=== PATIENT | female | born 2000 | race Hispanic/Latino ===

== ENCOUNTER 2019-05-16 21:06 | Emergency (ER) | payer OTHER ==
[~2019-05-16 21:06] MED LIST: LEVO500T89 PO
[2019-05-16 21:24] LABS: APPEARANCE,URINE Clear (CLEAR); BILIRUBIN,URINE Negative (NEGATIVE); COLOR,URINE Yellow (YELLOW); GLUCOSE, URINE (UA) Negative (NEGATIVE); KETONES,URINE Negative (NEGATIVE); LEUKOCYTE ESTERASE ,URINE Trace (NEGATIVE); NITRATE,URINE Negative (NEGATIVE); OCCULT BLOOD,URINE Negative (NEGATIVE); PH,URINE 6.5 (5.0-8.0); PROTEIN,URINE Negative (NEGATIVE)
[2019-05-16 21:26] LABS: HCG,QUAL RESULT POSITIVE (NEGATIVE)
[2019-05-16] MEDS ORDERED: SODIUM CHLORIDE 0.9% 1000ML 1,000 ML IV ONE (21:30)
[2019-05-16 21:31] LABS: BACTERIA,URINE Rare /HPF (None Seen); RBC,URINE 0-1 /HPF (0-1); SQUAMOUS EPITHELIAL CELL,UR Rare /HPF (0-2); WBC,URINE 0-1 /HPF (0-1)
[2019-05-16 21:38] LABS: BASOPHILS % (AUTO) 0.1 % (0.0-5.0); EOSINOPHILS % (AUTO) 0.8 % (0.0-8.0); HEMATOCRIT 34.7 % (36-48); LYMPHOCYTES % (AUTO) 33.2 % (21.0-51.0); MEAN CORPUSCULAR HEMOGLOBIN 24.6 pg (27.0-33.0); MEAN CORPUSCULAR HGB CONC 33.2 g/dL (32.0-36.0); MEAN CORPUSCULAR VOLUME 74.1 fL (80-100); MONOCYTES % (AUTO) 6.6 % (3.0-13.0); NEUTROPHILS % (AUTO) 59.3 % (40.0-77.0); PLATELET COUNT (AUTO) 268 K/uL (130-400); RED BLOOD CELL COUNT(AUTO) 4.68 MIL/uL (4.00-5.50); RED CELL DISTRIBUTION WIDTH 14.5 % (11.0-15.5); WHITE BLOOD COUNT (AUTO) 7.5 K/uL (4.8-10.8)
[2019-05-16 21:48] LABS: CREATININE 0.6 mg/dL (0.5-1.5); POTASSIUM 3.7 mmol/L (3.5-5.1)
[2019-05-16 21:52] LABS: ALBUMIN 4.2 g/dL (3.5-5.0); BILIRUBIN,TOTAL 0.3 mg/dL (0.2-1.0); TOTAL PROTEIN, SERUM 8.3 g/dL (6.0-8.3)
[2019-05-16] MEDS ORDERED: ACETAMINOPHEN 325 MG TAB ONE (22:10)
[2019-05-16] MEDS ORDERED: CEFTRIAXONE SODIUM 1 GM ONE (23:14)
== END 2019-05-17 00:04 | disposition home or self-care (01) ==
LOC: EDH 21:06
DX: O23.41 Unspecified infection of urinary tract in pregnancy, first trimester (principal); Z3A.01 Less than 8 weeks gestation of pregnancy
CPT/HCPCS: 36415; 76801; 80053; 81001; 81025; 82150; 83690; 85025; 86900; 86901; 87088; 96374; 99285; J0696; J7030

== ENCOUNTER 2019-11-15 16:48 | Observation (INO) | payer OTHER ==
[~2019-11-15] VITALS: Ht 152.4 cm; Wt 56.2 kg
[2019-11-15] MEDS: LACTATED RINGERS 1000ML IV SCH ×3 (17:22→19:00)
[2019-11-15 17:32] LABS: APPEARANCE,URINE Clear (CLEAR); BILIRUBIN,URINE Small (NEGATIVE); COLOR,URINE Orange (YELLOW); GLUCOSE, URINE (UA) Negative (NEGATIVE); KETONES,URINE >=80 mg/dL (NEGATIVE); LEUKOCYTE ESTERASE ,URINE Small (NEGATIVE); NITRATE,URINE Positive (NEGATIVE); OCCULT BLOOD,URINE Moderate (NEGATIVE); PH,URINE 6.5 (5.0-8.0); PROTEIN,URINE POS 1+ mg/dL (NEGATIVE)
[2019-11-15 17:41] LABS: BACTERIA,URINE Few /HPF (None Seen); MUCUS,URINE Few LPF (None Seen); SQUAMOUS EPITHELIAL CELL,UR Few /HPF (0-2)
[2019-11-15] MEDS ORDERED: CEFTRIAXONE SODIUM 1 GM ONE (18:15)
[2019-11-15 18:18] LABS: BASOPHILS % (AUTO) 0.1 % (0.0-5.0); EOSINOPHILS % (AUTO) 0.1 % (0.0-8.0); HEMATOCRIT 30.9 % (36-48); LYMPHOCYTES % (AUTO) 9.9 % (21.0-51.0); MEAN CORPUSCULAR HEMOGLOBIN 26.6 pg (27.0-33.0); MEAN CORPUSCULAR HGB CONC 31.4 g/dL (32.0-36.0); MEAN CORPUSCULAR VOLUME 84.9 fL (80-100); NEUTROPHILS % (AUTO) 83.2 % (40.0-77.0); PLATELET COUNT (AUTO) 182 K/uL (130-400); RED BLOOD CELL COUNT(AUTO) 3.64 MIL/uL (4.00-5.50); WHITE BLOOD COUNT (AUTO) 8.3 K/uL (4.8-10.8)
[2019-11-15 18:21] LABS: CREATININE 0.6 mg/dL (0.5-1.5); POTASSIUM 3.8 mmol/L (3.5-5.1)
[2019-11-15] MEDS ORDERED: PROMETHAZINE HCL 25 MG/ML 1ML AMPULE IM SCH (19:15)
[2019-11-15] MEDS ORDERED: ACETAMINOPHEN-CODEINE 300/30MG TAB PO ONE (22:06)
[2019-11-16] MEDS ORDERED: CEFTRIAXONE SODIUM 1 GM IV SCH (09:00)
== END 2019-11-15 21:45 | disposition home or self-care (01) ==
LOC: LDH 16:48
PROVIDERS: ADMIT Obstetrics & Gynecology; ATTEND Obstetrics & Gynecology
DX: O21.2 Late vomiting of pregnancy (principal); R19.7 Diarrhea, unspecified; R10.30 Lower abdominal pain, unspecified; M54.9 Dorsalgia, unspecified; Z3A.31 31 weeks gestation of pregnancy
CPT/HCPCS: 36415; 80048; 81001; 85025; 87088; 96361; 96372; 96374; A4606; G0378 ×5; J0696; J2550; J7120 ×3; 96360

== ENCOUNTER 2019-12-15 22:46 | Observation (INO) | payer OTHER ==
[~2019-12-15] VITALS: Ht 152.4 cm; Wt 57.6 kg
[2019-12-15] MEDS ORDERED: LACTATED RINGERS 1000ML 1,000 ML IV SCH (23:00)
[2019-12-15] MEDS ORDERED: FERR-82 PO (23:01)
[2019-12-15 23:17] LABS: APPEARANCE,URINE Clear (CLEAR); BILIRUBIN,URINE Negative (NEGATIVE); COLOR,URINE Yellow (YELLOW); GLUCOSE, URINE (UA) Negative (NEGATIVE); KETONES,URINE Negative (NEGATIVE); LEUKOCYTE ESTERASE ,URINE Trace (NEGATIVE); NITRATE,URINE Negative (NEGATIVE); OCCULT BLOOD,URINE Negative (NEGATIVE); PROTEIN,URINE Negative (NEGATIVE)
[2019-12-15 23:28] LABS: RBC,URINE 0-1 /HPF (0-1); WBC,URINE 0-1 /HPF (0-1)
[2019-12-15 23:29] LABS: BACTERIA,URINE Rare /HPF (None Seen); SQUAMOUS EPITHELIAL CELL,UR 0-2 /HPF (0-2)
[2019-12-16] MEDS ORDERED: PROMETHAZINE HCL 25 MG/ML 1ML AMPULE IM SCH (00:15)
== END 2019-12-16 01:43 | disposition home or self-care (01) ==
LOC: EDH 22:46 → LDH 23:04
PROVIDERS: ADMIT Obstetrics & Gynecology; ATTEND Obstetrics & Gynecology
DX: O26.893 Other specified pregnancy related conditions, third trimester (principal); R10.30 Lower abdominal pain, unspecified; R19.7 Diarrhea, unspecified; O21.2 Late vomiting of pregnancy; O99.013 Anemia complicating pregnancy, third trimester; D64.9 Anemia, unspecified; Z3A.36 36 weeks gestation of pregnancy
CPT/HCPCS: 81001; 99284; G0378 ×3; 96360

== ENCOUNTER 2019-12-25 08:14 | Inpatient (IN) | payer OTHER ==
[~2019-12-25] VITALS: Ht 152.4 cm; Wt 60.8 kg
[~2019-12-25 08:14] MED LIST changes: +FERR-82 PO
[2019-12-25] MEDS ORDERED: LACTATED RINGERS 1000ML 1,000 ML IV PRN (08:55)
[2019-12-25 08:58] VITALS: BP 100/63
[2019-12-25] MEDS ORDERED: EPHEDRINE SULFATE 50 MG/ML AMPULE IVP PRN (09:00)
[2019-12-25] MEDS ORDERED: NALOXONE HCL 0.4 MG/1 ML ML IV PRN (09:00)
[2019-12-25] MEDS ORDERED: ROPIVACAINE 0.2% 100ML VIAL 100 ML EP SCH (09:00)
[2019-12-25] MEDS ORDERED: LACTATED RINGERS 500 ML 500 ML IV PRN (09:00)
[2019-12-25 09:08] LABS: HEMATOCRIT 32.2 % (36-48); MEAN CORPUSCULAR HGB CONC 33.2 g/dL (32.0-36.0); MEAN CORPUSCULAR VOLUME 84.3 fL (80-100); RED BLOOD CELL COUNT(AUTO) 3.82 MIL/uL (4.00-5.50); WHITE BLOOD COUNT (AUTO) 14.4 K/uL (4.8-10.8)
[2019-12-25 09:21] LABS: APPEARANCE,URINE CLEAR (CLEAR); BILIRUBIN,URINE NEGATIVE (NEGATIVE); COLOR,URINE YELLOW (YELLOW); GLUCOSE, URINE (UA) NEGATIVE (NEGATIVE); KETONES,URINE NEGATIVE (NEGATIVE); LEUKOCYTE ESTERASE ,URINE NEGATIVE (NEGATIVE); NITRATE,URINE NEGATIVE (NEGATIVE); OCCULT BLOOD,URINE TRACE-INTACT (NEGATIVE); PH,URINE 7.5 (5.0-8.0); PROTEIN,URINE NEGATIVE (NEGATIVE)
[2019-12-25 09:24] LABS: BACTERIA,URINE Rare /HPF (None Seen); RBC,URINE 0-1 /HPF (0-1); SQUAMOUS EPITHELIAL CELL,UR Rare /HPF (0-2); WBC,URINE 0-1 /HPF (0-1)
[2019-12-25] MEDS: OXYTOCIN-LR 20 UNITS/1000 ML 1,000 ML IV SCH ×2 (14:45→16:20)
[2019-12-25] MEDS ORDERED: METHYLERGONOVINE MALEATE 0.2 MG/1 ML ML ONE (15:05)
[2019-12-25] MEDS ORDERED: BENZOCAINE/LANOLIN/ALOE VERA 60 ML AEROSOL TP PRN (15:15)
[2019-12-25] MEDS ORDERED: MEASLES/MUMPS/RUBELLA VACCINE, LIVE 0.5 ML/VIAL SQ SCH (15:15)
[2019-12-25] MEDS ORDERED: DIPH,PERTUSS(ACELL),TET VAC/PF 0.5 ML VIAL IM PRN (15:15)
[2019-12-25] MEDS ORDERED: LANOLIN 30GM OINTMENT TP PRN (15:15)
[2019-12-25] MEDS ORDERED: ACETAMINOPHEN-CODEINE 300/30MG TAB PO PRN (15:15)
[2019-12-25] MEDS ORDERED: WITCH HAZEL 1 PAD TP PRN (15:15)
[2019-12-25] MEDS: IBUPROFEN 600 MG TABLET PO PRN (16:21)
[2019-12-25] MEDS ORDERED: ONDANSETRON HCL 4 MG/2 ML VIAL ONE (16:31)
--- NOTE | 2019-12-25 19:00 | NUR ---
report received from haley obando rnc
--- NOTE | 2019-12-25 19:35 | NUR ---
pt. called and c/o abdominal pressure and vaginal soreness. Pt. said that she still feeling the numbness of her lower extremities but moving her toes. Fundus has been firm at the level of the umbilicus. Pt encouraged to void at this time. Pt. verbalized that she had a Dasilva catheter earlier and was discontinued at delivery. Bedpan given.
--- NOTE | 2019-12-25 19:45 | NUR ---
pt. tolerated well during the fundal massage.
--- NOTE | 2019-12-25 19:45 | NUR ---
pt. voided on the bedpan 200 cc of urine. Small lochia rubra noted. Lori care done. No swelling noted at the perineum. Lori pad applied. Pt felt comfortable at this time. And she verbalized that she doesn't have pain at this time.
[2019-12-25 20:00] VITALS: BP 95/59
--- NOTE | 2019-12-25 21:05 | NUR ---
dermaplast spray, lanolin cream, and sitz bath indications and instructions given to pt verbally. pt verbalized understanding. familiar with sitz bath use.
[2019-12-25] MEDS: DOCUSATE SODIUM 100 MG CAP PO SCH (21:37)
[2019-12-26] VITALS: BP 97/56
--- NOTE | 2019-12-26 00:25 | NUR ---
TDAP AND MMR GIVEN. IINDICATIONS EXPLAINED TO PT. PT VERBALIZED UNDERSTANDING.
--- NOTE | 2019-12-26 02:47 | NUR ---
IV SALINE LOCKED. FLUSHED WITH NS
[2019-12-26 04:29] VITALS: BP 90/54
--- NOTE | 2019-12-26 04:32 | NUR ---
sandwich and apple juice given
--- NOTE | 2019-12-26 05:08 | NUR ---
pt up to shower. bed linens changed.
[2019-12-26 07:01] LABS: HEMATOCRIT 30.5 % (36-48); MEAN CORPUSCULAR HEMOGLOBIN 27.4 pg (27.0-33.0); MEAN CORPUSCULAR HGB CONC 32.5 g/dL (32.0-36.0); MEAN CORPUSCULAR VOLUME 84.5 fL (80-100); RED BLOOD CELL COUNT(AUTO) 3.61 MIL/uL (4.00-5.50); RED CELL DISTRIBUTION WIDTH 16.7 % (11.0-15.5); WHITE BLOOD COUNT (AUTO) 17.1 K/uL (4.8-10.8)
--- NOTE | 2019-12-26 07:11 | NUR ---
report given to haley bullockc
[2019-12-26 08:27] VITALS: BP 96/55
[2019-12-26] MEDS: DOCUSATE SODIUM 100 MG CAP PO SCH (10:13)
[2019-12-26] MEDS: IBUPROFEN 600 MG TABLET PO PRN (10:13)
--- NOTE | 2019-12-26 11:50 | NUR ---
ROUNDS PT SLEEPING. INSTRUCTED SIGNIFICANT OTHER TO NOTIFY STAFF FOR ANY ASSISTANCE.
--- NOTE | 2019-12-26 15:10 | NUR ---
DISCHARGE DISCHARGED HOME VIA WHEELCHAIR, BABY IN ARMS. DEPARTED PER PRIVATE VEHICLE WITH SPOUSE.
[2019-12-28 06:11] LABS: HEPATITIS Bs ANTIGEN SCREEN P Negative (Negative)
== END 2019-12-26 15:10 | disposition home or self-care (01) | DRG 807 ==
LOC: EDH 08:14 → LDH 08:26 → OBSVTOIN 08:26 → WSH 17:48
PROVIDERS: ADMIT Obstetrics & Gynecology; ATTEND Obstetrics & Gynecology
PROC: 10E0XZZ Delivery of Products of Conception, External Approach (ICD-10-PCS; principal; 2019-12-25)
PROC: 0KQM0ZZ Repair Perineum Muscle, Open Approach (ICD-10-PCS; 2019-12-25)
PROC: 3E0234Z Introduction of Serum, Toxoid and Vaccine into Muscle, Percutaneous Approach (ICD-10-PCS; 2019-12-25)
PROC: 10907ZC Drainage of Amniotic Fluid, Therapeutic from Products of Conception, Via Natural or Artificial Opening (ICD-10-PCS; 2019-12-25)
PROC: 3E0R3BZ Introduction of Anesthetic Agent into Spinal Canal, Percutaneous Approach (ICD-10-PCS; 2019-12-25)
PROC: 00HU33Z Insertion of Infusion Device into Spinal Canal, Percutaneous Approach (ICD-10-PCS; 2019-12-25)
DX: O69.81X0 Labor and delivery complicated by cord around neck, without compression, not applicable or unspecified (principal); Z37.0 Single live birth; O99.02 Anemia complicating childbirth; D64.9 Anemia, unspecified; O70.1 Second degree perineal laceration during delivery; Z23 Encounter for immunization; Z3A.37 37 weeks gestation of pregnancy
CPT/HCPCS: 36415; 81001; 85027; 86592; 86850; 86900; 86901; 87340; 90707; 90715; A4314; A4606; G0378; J2210; J2405; J2590; J2795; J7120

== ENCOUNTER 2020-04-17 19:34 | Emergency (ER) | payer OTHER ==
[2020-04-17] MEDS ORDERED: ONDANSETRON HCL 4 MG/2 ML VIAL ONE (20:39)
[2020-04-17 21:21] LABS: APPEARANCE,URINE Clear (CLEAR); BASOPHILS % (AUTO) 0.1 % (0.0-5.0); BILIRUBIN,URINE Negative (NEGATIVE); COLOR,URINE Dark Yellow (YELLOW); EOSINOPHILS % (AUTO) 1.1 % (0.0-8.0); GLUCOSE, URINE (UA) Negative (NEGATIVE); HEMATOCRIT 41.7 % (36-48); KETONES,URINE 40 mg/dL (NEGATIVE); LEUKOCYTE ESTERASE ,URINE Trace (NEGATIVE); LYMPHOCYTES % (AUTO) 20.8 % (21.0-51.0); MEAN CORPUSCULAR HGB CONC 33.3 g/dL (32.0-36.0); MEAN CORPUSCULAR VOLUME 86.9 fL (79-99); MONOCYTES % (AUTO) 4.3 % (3.0-13.0); NEUTROPHILS % (AUTO) 73.6 % (40.0-77.0); NITRATE,URINE Negative (NEGATIVE); OCCULT BLOOD,URINE Nonhemolyzed Trace (NEGATIVE); PLATELET COUNT (AUTO) 293 K/uL (130-400); PROTEIN,URINE Negative (NEGATIVE); RED CELL DISTRIBUTION WIDTH 13.1 % (11.0-15.5); WHITE BLOOD COUNT (AUTO) 8.2 K/uL (4.8-10.8)
[2020-04-17 21:27] LABS: BACTERIA,URINE Few /HPF (None Seen); MUCUS,URINE Moderate LPF (None Seen); RBC,URINE 0-1 /HPF (0-1); SQUAMOUS EPITHELIAL CELL,UR Few /HPF (0-2)
[2020-04-17 21:28] LABS: HYALINE CASTS, URINE 0-1 /LPF (0-1 /LPF)
[2020-04-17 21:59] LABS: ALBUMIN 4.3 g/dL (3.5-5.0); BILIRUBIN,TOTAL 0.5 mg/dL (0.2-1.0); CREATININE 0.6 mg/dL (0.5-1.5); POTASSIUM 3.8 mmol/L (3.5-5.1); TOTAL PROTEIN, SERUM 8.8 g/dL (6.0-8.3)
[2020-04-17] MEDS ORDERED: ACETAMINOPHEN EXTRA STRENGTH 500 MG TABLET ONE (22:19)
== END 2020-04-17 22:36 | disposition home or self-care (01) ==
LOC: EDH 19:34
DX: O21.0 Mild hyperemesis gravidarum (principal); Z3A.01 Less than 8 weeks gestation of pregnancy
CPT/HCPCS: 36415; 76801; 80053; 81001; 84702; 85025; 86900; 86901; 96361; 96374; 99284; J2405

== ENCOUNTER 2020-05-31 23:33 | Emergency (ER) | payer OTHER ==
[2020-05-31 23:58] LABS: APPEARANCE,URINE Clear (CLEAR); BILIRUBIN,URINE Negative (NEGATIVE); COLOR,URINE Yellow (YELLOW); GLUCOSE, URINE (UA) Negative (NEGATIVE); KETONES,URINE Negative (NEGATIVE); LEUKOCYTE ESTERASE ,URINE Negative (NEGATIVE); NITRATE,URINE Negative (NEGATIVE); OCCULT BLOOD,URINE Nonhemolyzed Trace (NEGATIVE); PROTEIN,URINE Negative (NEGATIVE)
[2020-05-31 23:59] LABS: HCG,QUAL RESULT POSITIVE (NEGATIVE)
[2020-06-01 00:08] LABS: BACTERIA,URINE Few /HPF (None Seen); MUCUS,URINE Few LPF (None Seen); RBC,URINE 0-1 /HPF (0-1); SQUAMOUS EPITHELIAL CELL,UR 0-2 /HPF (0-2); WBC,URINE 0-1 /HPF (0-1)
[2020-06-01] MEDS ORDERED: SODIUM CHLORIDE 0.9% 1000ML 2,000 ML IV ONE (00:12)
[2020-06-01] MEDS ORDERED: METOCLOPRAMIDE 10 MG/2 ML VIAL ONE (00:19)
[2020-06-01 00:32] LABS: INR 0.98 (0.85-1.15); PARTIAL THROMBOPLASTIN TIME 27.6 SEC (26.3-35.5); PROTHROMBIN TIME 10.6 SEC (9.6-11.6)
[2020-06-01 00:47] LABS: CREATININE 0.5 mg/dL (0.5-1.5); POTASSIUM 3.9 mmol/L (3.5-5.1)
[2020-06-01 00:53] LABS: BASOPHILS % (AUTO) 0.1 % (0.0-5.0); EOSINOPHILS % (AUTO) 2.8 % (0.0-8.0); HEMATOCRIT 39.5 % (36-48); LYMPHOCYTES % (AUTO) 23.5 % (21.0-51.0); MEAN CORPUSCULAR HGB CONC 34.7 g/dL (32.0-36.0); MEAN CORPUSCULAR VOLUME 83.7 fL (79-99); MONOCYTES % (AUTO) 4.3 % (3.0-13.0); NEUTROPHILS % (AUTO) 69.1 % (40.0-77.0); PLATELET COUNT (AUTO) 267 K/uL (130-400); RED BLOOD CELL COUNT(AUTO) 4.72 MIL/uL (4.00-5.50); RED CELL DISTRIBUTION WIDTH 12.3 % (11.0-15.5); WHITE BLOOD COUNT (AUTO) 8.8 K/uL (4.8-10.8)
[2020-06-01 01:22] LABS: ALBUMIN 3.7 g/dL (3.5-5.0); BILIRUBIN,TOTAL 0.4 mg/dL (0.2-1.0); TOTAL PROTEIN, SERUM 8.2 g/dL (6.0-8.3)
[2020-06-01] MEDS ORDERED: CEFTRIAXONE SODIUM 1 GM ONE (01:43)
[2020-06-01] MEDS ORDERED: SODIUM CHLORIDE 0.9% 50 ML IV ONE (01:44)
== END 2020-06-01 02:43 | disposition home or self-care (01) ==
LOC: EDH 23:33
DX: O20.0 Threatened abortion (principal); R82.71 Bacteriuria; Z87.891 Personal history of nicotine dependence; Z3A.12 12 weeks gestation of pregnancy
CPT/HCPCS: 36415; 76770; 76801; 80053; 81001; 81025; 82550; 83605; 83690; 84702; 85025; 85610; 85730; 87040 ×2; 87088; 96361; 96374; 96375; 99285; J0696; J2765; J7030

== ENCOUNTER 2020-10-08 14:30 | Observation (INO) | payer MEDICAID, OTHER ==
[2020-10-08 14:58] LABS: APPEARANCE,URINE Clear (CLEAR); BILIRUBIN,URINE Negative (NEGATIVE); COLOR,URINE Yellow (YELLOW); GLUCOSE, URINE (UA) Negative (NEGATIVE); KETONES,URINE Negative (NEGATIVE); LEUKOCYTE ESTERASE ,URINE Negative (NEGATIVE); NITRATE,URINE Negative (NEGATIVE); OCCULT BLOOD,URINE Trace (NEGATIVE); PROTEIN,URINE Negative (NEGATIVE)
[2020-10-08 15:15] LABS: BACTERIA,URINE Rare /HPF (None Seen); RBC,URINE 0-1 /HPF (0-1); SQUAMOUS EPITHELIAL CELL,UR 0-2 /HPF (0-2); WBC,URINE 0-1 /HPF (0-1)
== END 2020-10-08 16:35 | disposition home or self-care (01) ==
LOC: EDH 14:30 → LDH 14:31
PROVIDERS: ADMIT Obstetrics & Gynecology; ATTEND Obstetrics & Gynecology
DX: O26.853 Spotting complicating pregnancy, third trimester (principal); O99.013 Anemia complicating pregnancy, third trimester; D64.9 Anemia, unspecified; Z87.448 Personal history of other diseases of urinary system; Z3A.32 32 weeks gestation of pregnancy
CPT/HCPCS: 59025; 81001; 99284; G0378 ×2

== ENCOUNTER 2020-11-15 21:28 | Emergency (ER) | payer MEDICAID ==
[2020-11-15 22:40] LABS: APPEARANCE,URINE Clear (CLEAR); BILIRUBIN,URINE Moderate (NEGATIVE); COLOR,URINE Dark Yellow (YELLOW); GLUCOSE, URINE (UA) Negative (NEGATIVE); KETONES,URINE 15 mg/dL (NEGATIVE); LEUKOCYTE ESTERASE ,URINE Trace (NEGATIVE); NITRATE,URINE Negative (NEGATIVE); OCCULT BLOOD,URINE Trace (NEGATIVE); PH,URINE 5.5 (5.0-8.0); PROTEIN,URINE POS 1+ mg/dL (NEGATIVE)
[2020-11-15 22:48] LABS: BACTERIA,URINE None Seen /HPF (None Seen); MUCUS,URINE Moderate LPF (None Seen); RBC,URINE 0-1 /HPF (0-1); SQUAMOUS EPITHELIAL CELL,UR Rare /HPF (0-2); WBC,URINE 0-1 /HPF (0-1)
[2020-11-16] MEDS ORDERED: KETOROLAC TROMETHAMINE 30MG/ML ONE (00:23)
[2020-11-16] MEDS ORDERED: HYDROCODONE/ACETAMINOPHEN 5/325 MG TAB ONE (00:23)
== END 2020-11-16 00:38 | disposition home or self-care (01) ==
LOC: EDH 21:28
DX: N39.0 Urinary tract infection, site not specified (principal)
CPT/HCPCS: 81001; 96372; 99283; J1885

== ENCOUNTER 2023-01-10 19:08 | Emergency (ER) | payer MEDICAID ==
[~2023-01-10] VITALS: Ht 152.4 cm; Wt 54.4 kg
[~2023-01-10 19:08] MED LIST changes: +LEVO-70 PO; -LEVO500T89 PO
[2023-01-10 19:48] LABS: BASOPHILS % (AUTO) 0.1 % (0.0-5.0); EOSINOPHILS % (AUTO) 1.1 % (0.0-8.0); HEMATOCRIT 36.3 % (36-48); LYMPHOCYTES % (AUTO) 29.2 % (21.0-51.0); MEAN CORPUSCULAR HEMOGLOBIN 27.5 pg (27.0-33.0); MEAN CORPUSCULAR HGB CONC 33.9 g/dL (32.0-36.0); MONOCYTES % (AUTO) 6.6 % (3.0-13.0); NEUTROPHILS % (AUTO) 62.9 % (40.0-77.0); PLATELET COUNT (AUTO) 259 K/uL (130-400); RED BLOOD CELL COUNT(AUTO) 4.48 MIL/uL (4.00-5.50); RED CELL DISTRIBUTION WIDTH 11.9 % (11.0-15.5); WHITE BLOOD COUNT (AUTO) 7.3 K/uL (4.8-10.8)
[2023-01-10 19:52] LABS: APPEARANCE,URINE CLEAR (CLEAR); BILIRUBIN,URINE NEGATIVE (NEGATIVE); COLOR,URINE YELLOW (YELLOW); GLUCOSE, URINE (UA) NEGATIVE (NEGATIVE); KETONES,URINE NEGATIVE (NEGATIVE); LEUKOCYTE ESTERASE ,URINE 75 Leu/uL (NEGATIVE); NITRATE,URINE NEGATIVE (NEGATIVE); OCCULT BLOOD,URINE LARGE (NEGATIVE); PROTEIN,URINE 20 mg/dL (NEGATIVE)
[2023-01-10] MEDS ORDERED: ONDANSETRON 4MG INJ IVP ONE (20:00)
[2023-01-10] MEDS ORDERED: 0.9%NACL 1000ML 1,000 ML IV SCH (20:00)
[2023-01-10 20:01] LABS: ALANINE AMINOTRANSFERASE 32 U/L (12-78); ASPARTATE AMINOTRANSFERASE 20 U/L (10-37); CARBON DIOXIDE 28 mmol/L (21-32); CHLORIDE 104 mmol/L (101-111); CREATININE 0.7 mg/dL (0.5-1.5); GLOMERULAR FILTR. RATE CALC 124 mL/min (>90); GLUCOSE,RANDOM 102 mg/dL (70-105); SODIUM SERUM 141 mmol/L (136-145); TOTAL PROTEIN, SERUM 7.8 g/dL (6.0-8.3); UREA NITROGEN, BLOOD 6 mg/dL (7-18)
[2023-01-10 20:02] LABS: LIPASE < 50 U/L (114-286); POTASSIUM 2.9 mmol/L (3.5-5.1)
[2023-01-10 20:10] LABS: BACTERIA,URINE FEW /HPF (None Seen); MUCUS,URINE MOD LPF (None Seen); RBC,URINE TNTC /HPF (0-1); SQUAMOUS EPITHELIAL CELL,UR FEW /HPF (0-2)
[2023-01-10] MEDS ORDERED: POTASSIUM CHLORIDE 20MEQ/100ML 100 ML IV ONE (20:15)
[2023-01-10] MEDS ORDERED: POTASSIUM CHLORIDE 20MEQ/10ML 10 MEQ in 0.9%NACL 50ML 50 ML IV SCH (20:30)
[2023-01-10] MEDS ORDERED: POTASSIUM CHLORIDE 10% ELIXIR 20 MEQ/15 ML UDCUP PO ONE (20:30)
[2023-01-10] MEDS ORDERED: POTASSIUM CHLORIDE 10% ELIXIR 20 MEQ/15 ML UDCUP PO SCH (20:30)
[2023-01-10] MEDS ORDERED: DIPH1TAB PO (21:05)
[2023-01-10] MEDS ORDERED: ONDA-104 PO (21:05)
[2023-01-10 21:16] VITALS: BP 115/76
== END 2023-01-10 21:27 | disposition home or self-care (01) ==
LOC: EDH 19:08
DX: R11.10 Vomiting, unspecified (principal); R19.7 Diarrhea, unspecified; E87.6 Hypokalemia; K80.20 Calculus of gallbladder without cholecystitis without obstruction
CPT/HCPCS: 99285; 96374; 76705; 96361; 96375; 80053; 83690; 85025; 87088; 81001; 81025; 36415; J7030; J2405; J3480 ×2